=== PATIENT | female | born 1985 | race Caucasian/White ===

== ENCOUNTER 2016-08-02 14:48 | Emergency (ER) | payer MEDICAID ==
[2016-08-02 15:10] VITALS: BP 128/73; PULSE 71; RESP 18; TEMP 99.1; O2SAT 97
--- NOTE | 2016-08-02 15:27 | PD ---
HPI Chief Complaint: Dizziness Time Seen by Provider: 15:23 Travel History International Travel<30 days: No Contact w/Intl Traveler<30days: No Traveled to known affect area: No History of Present Illness HPI Patient is a 31-year-old female presenting to emergency Department with EMS for evaluation of dizziness. Patient states it started at 12:30 this afternoon when she was getting a facial done at school. She reports it feels as if the room is spinning it's worse with head movement. She reports the same thing happened 3 months ago. She denies any headache, shortness of breath, chest pain , nausea. Patient states that she did 2 lines of cocaine over the weekend and feels she could possibly be dehydrated. She denies any significant past medical history. [facility] Past Medical History Medical History: Denies Significant Hx ?: Unknown Past Surgical History Appendectomy: Yes Other Surgery: Yes (breast augmentation) Social History Alcohol Use: Yes Tobacco Use: Yes Substance Use: Yes (COCAINE) Allergies-Medications (Allergen,Severity, Reaction): Coded Allergies: No Known Allergies (Unverified , 08/02/16) Reported Meds & Prescriptions Reported Meds & Active Scripts Active Meclizine (Meclizine HCl) 25 Mg Tab 25 Mg PO TID PRN 10 Days Review of Systems Except as stated in HPI: all other systems reviewed are Neg Eyes: No: Blurred Vision HENT: Positive: Vertigo Neurologic: Positive: Dizziness Physical Exam Narrative GENERAL: Well developed, well-nourished, alert female. Resting comfortably in no acute distress. SKIN: Focused skin assessment warm/dry. HEAD: Atraumatic. Normocephalic. EYES: Pupils equal and round. No scleral icterus. No injection or drainage. ENT: No nasal bleeding or discharge. Mucous membranes pink and moist. NECK: Trachea midline. No JVD. CARDIOVASCULAR: Regular rate and rhythm. No murmur appreciated. RESPIRATORY: No accessory muscle use. Clear to auscultation. Breath sounds equal bilaterally. GASTROINTESTINAL: Abdomen soft, non-tender, nondistended. Hepatic and splenic margins not palpable. MUSCULOSKELETAL: No obvious deformities. No clubbing. No cyanosis. No edema. NEUROLOGICAL: Awake and alert. No obvious cranial nerve deficits. Motor grossly within normal limits. Normal speech. PSYCHIATRIC: Appropriate mood and affect; insight and judgment normal. Data Data Last Documented VS Vital Signs Date Time Temp Pulse Resp B/P Pulse Ox O2 Delivery O2 Flow Rate FiO2 08/02/16 15:10 99.1 71 18 128/73 97 Room Air Orders Electrocardiogram (08/02/16 15:05) Ecg Monitoring (08/02/16 15:05) Iv Access Insert/Monitor (08/02/16 15:05) Oximetry (08/02/16 15:05) Basic Metabolic Panel (Bmp) (08/02/16 15:22) Meclizine (Antivert) (08/02/16 15:30) Labs Laboratory Tests Test 08/02/16 15:30 Sodium Level 139 MEQ/L Potassium Level 3.6 MEQ/L Chloride Level 102 MEQ/L Carbon Dioxide Level 26.5 MEQ/L Anion Gap 11 MEQ/L Blood Urea Nitrogen 8 MG/DL Creatinine 0.84 MG/DL Estimat Glomerular Filtration 79 ML/MIN Rate Random Glucose 86 MG/DL Calcium Level 8.6 MG/DL MDM Medical Decision Making Medical Screen Exam Complete: Yes Emergency Medical Condition: Yes Interpretation(s) Laboratory Tests Test 08/02/16 15:30 Sodium Level 139 MEQ/L Potassium Level 3.6 MEQ/L Chloride Level 102 MEQ/L Carbon Dioxide Level 26.5 MEQ/L Anion Gap 11 MEQ/L Blood Urea Nitrogen 8 MG/DL Creatinine 0.84 MG/DL Estimat Glomerular Filtration 79 ML/MIN Rate Random Glucose 86 MG/DL Calcium Level 8.6 MG/DL Vital Signs Date Time Temp Pulse Resp B/P Pulse Ox O2 Delivery O2 Flow Rate FiO2 08/02/16 15:10 99.1 71 18 128/73 97 Room Air 08/02/16 15:10 71 18 97 Room Air 08/02/16 15:10 97 Room Air Differential Diagnosis Slight abnormality versus cardiac arrhythmia versus benign peripheral vertigo versus other Narrative Course Patient's a 31-year-old female presenting to emergency for evaluation of dizziness has ongoing for approximately 3 hours. Vital signs are stable, labs ordered and pending. EKG shows sinus rhythm with a rate of 63. We'll check metabolic panel, patient will be given dose of meclizine now. IV fluids started per EMS. BMP is unremarkable. Patient was also seen and evaluated by my attending physician. She was given a prescription for meclizine, she is encouraged follow -up with her primary doctor, she was given written information regarding the [facility]. Patient is to avoid use of illicit drugs. Patient is stable for discharge. Diagnosis Primary Impression: Vertigo Referrals: Primary Care Physician Patient Instructions: Benign Paroxysmal Positional Vertigo (ED), Dizziness (ED) , General Instructions Additional Instructions: Follow-up with her primary doctor Maintain adequate fluid intake Take medications as directed Return to emergency department for any new or worsening symptoms Med/Other Pt SpecificInfo: Prescription(s) given Scripts Meclizine 25 Mg Tab25 Mg PO TID PRN (VERTIGO) 10 Days Ref 0 Prov:Darby Uribe 08/02/16 Disposition: DISCHARGE HOME Condition: Stable Darby Uribe August 02, 2016 15:27
[2016-08-02] MEDS ORDERED: MECLIZINE HCL 25 MG TAB PO ONE (15:30)
[2016-08-02 16:05] LABS: BICARBONATE 26.5 MEQ/L (21.0-32.0); POTASSIUM 3.6 MEQ/L (3.5-5.1)
[2016-08-02] MEDS ORDERED: MECL-62 PO (16:11)
--- NOTE | 2016-08-02 16:15 | PD ---
Data Data Last Documented VS Vital Signs Date Time Temp Pulse Resp B/P Pulse Ox O2 Delivery O2 Flow Rate FiO2 08/02/16 15:10 99.1 71 18 128/73 97 Room Air Orders Electrocardiogram (08/02/16 15:05) Ecg Monitoring (08/02/16 15:05) Iv Access Insert/Monitor (08/02/16 15:05) Oximetry (08/02/16 15:05) Basic Metabolic Panel (Bmp) (08/02/16 15:22) Meclizine (Antivert) (08/02/16 15:30) Labs Laboratory Tests Test 08/02/16 15:30 Sodium Level 139 MEQ/L Potassium Level 3.6 MEQ/L Chloride Level 102 MEQ/L Carbon Dioxide Level 26.5 MEQ/L Anion Gap 11 MEQ/L Blood Urea Nitrogen 8 MG/DL Creatinine 0.84 MG/DL Estimat Glomerular Filtration 79 ML/MIN Rate Random Glucose 86 MG/DL Calcium Level 8.6 MG/DL MDM Supervised Visit with SHAINA: Yes Narrative Course I, Dr. Arreola, have reviewed the advance practice practioner's documentation and am in agreement, met with the patient face to face, made the diagnosis, and the medical decision making was done by me. *My assessment and Findings: 31-year-old female here with complaint of vertigo that started at approximately 12:30 PM while getting a facial, states it's worse with any head movement, notes a sensation of vertigo. Similar episode 3 months ago. She did snort 2 lines of cocaine over the weekend but otherwise has been asymptomatic. Neurologic examination is unremarkable, the patient is symptomatic with head movement primarily to the right. Symptoms are classic for BPPV, differential includes Mnire's, labyrinthitis with CATH LAB TECH lesion. Patient treated symptomatically we'll be discharged home. Diagnosis Primary Impression: Vertigo Referrals: Primary Care Physician Patient Instructions: General Instructions, Benign Paroxysmal Positional Vertigo (ED), Dizziness (ED) Departure Forms: Tests/Procedures Additional Instruction: Follow-up with her primary doctor or physical therapy if symptoms persist Maintain adequate fluid intake Take medications as directed Return to emergency department for any new or worsening symptoms Scripts Meclizine 25 Mg Tab25 Mg PO TID PRN (VERTIGO) 10 Days Ref 0 Prov:Darby Uribe 08/02/16 Disposition: 01 DISCHARGE HOME Condition: Stable Kathleen Arreola MD August 02, 2016 16:15
--- NOTE | 2016-08-03 08:53 | EKG ---
Date Performed: 08/02/2016 Time Performed: 15:24:47 PTAGE: 31 years EKG: Sinus rhythm WITH SHORT CT INTERVAL NONSPECIFIC ST ELEVATION BORDERLINE ECG INTERPRETATION BASED ON A DEFAULT AGE OF 40 YEARS NO PREVIOUS TRACING DOCTOR: William Peralta Interpretating Date/Time 08/03/2016 08:51:46
== END 2016-08-02 17:02 | disposition home or self-care (01) ==
LOC: NEPD 14:48
DX: R42 Dizziness and giddiness (principal); F14.90 Cocaine use, unspecified, uncomplicated; R94.31 Abnormal electrocardiogram [ECG] [EKG]; Z72.0 Tobacco use
CPT/HCPCS: 80048; 93005

== ENCOUNTER 2016-10-31 17:55 | Emergency (ER) | payer MEDICAID, OTHER ==
[~2016-10-31] VITALS: Ht 160 cm; Wt 50.0 kg
[~2016-10-31 17:55] MED LIST: MECL-62 PO
[2016-10-31 18:09] VITALS: BP 122/71; PULSE 73; RESP 15; TEMP 98.8; O2SAT 96
--- NOTE | 2016-10-31 18:36 | PD ---
HPI Chief Complaint: Alcohol/Drug Intoxication Time Seen by Provider: 18:32 Travel History International Travel<30 days: No Contact w/Intl Traveler<30days: No Traveled to known affect area: No History of Present Illness HPI 31-year-old female presents to the emergency Department under Kelly's act by local police. The patient states she has been drinking alcohol all day today. She also states that she smoked crack. The patient states she wants inpatient detox. She denies any thoughts of hurting herself or anybody else. The patient is alert and answers all questions appropriately. She is walking around the room without difficulty. She denies any complaints to me. No headache. No chest pressures breath. No abdominal pain. Nausea, vomiting, diarrhea. PFSH Past Medical History ?: Not Past Surgical History Appendectomy: Yes Other Surgery: Yes (breast augmentation) Social History Alcohol Use: Yes Tobacco Use: Yes Substance Use: Yes (COCAINE, HEROIN) Allergies-Medications (Allergen,Severity, Reaction): Coded Allergies: No Known Allergies (Unverified , 10/31/16) Reported Meds & Prescriptions Reported Meds & Active Scripts Active Meclizine (Meclizine HCl) 25 Mg Tab 25 Mg PO TID PRN 10 Days Review of Systems Except as stated in HPI: all other systems reviewed are Neg Physical Exam Narrative GENERAL: Well-nourished, well-developed female patient, ambulatory with a steady gait. Afebrile. Patient is alert and oriented to person, place, time. SKIN: Focused skin assessment warm/dry. HEAD: Normocephalic. Atraumatic. EYES: No scleral icterus. No injection or drainage. NECK: Supple, trachea midline. No JVD or lymphadenopathy. CARDIOVASCULAR: Regular rate and rhythm without murmurs, gallops, or rubs. RESPIRATORY: Breath sounds equal bilaterally. No accessory muscle use. Lungs sounds are clear to auscultation. GASTROINTESTINAL: Abdomen soft, non-tender, nondistended. MUSCULOSKELETAL: No cyanosis, or edema. BACK: Nontender without obvious deformity. No CVA tenderness. PSYCHIATRIC: No delusional thought processes. No hallucinations. Data Data Last Documented VS Vital Signs Date Time Temp Pulse Resp B/P Pulse Ox O2 Delivery O2 Flow Rate FiO2 10/31/16 18:09 98.8 73 15 122/71 96 MDM Medical Decision Making Medical Screen Exam Complete: Yes Emergency Medical Condition: Yes Medical Record Reviewed: Yes Differential Diagnosis Alcohol intoxication versus substance abuse versus medical clearance Narrative Course 31-year-old female presents to the emergency department under Mina act by local police for alcohol intoxication, drug use. The patient has no complaints and would like to leave. She is ambulatory with a steady gait. She is alert and answers all questions appropriately. The patient does not need Brock act criteria. I do not feel I can keep this patient against her will. The patient agrees to get a cab and will allow us to watch her gait in the. She states she does not have a ride home at this time. The patient was discharged in stable condition with instructions, including return instructions and follow up instructions. Diagnosis Primary Impression: Alcohol intoxication Qualified Code: F10.920 - Alcohol intoxication, uncomplicated Referrals: Primary Care Physician call for appointment [facility] Patient Instructions: Alcohol Intoxication (ED), General Instructions Additional Instructions: Follow-up [facility] for detox. Follow-up with your primary care physician. Return to the emergency department for any acute worsening of symptoms. Med/Other Pt SpecificInfo: No Change to Meds Disposition: 01 DISCHARGE HOME Condition: Stable Tiki Rios Oct 31, 2016 18:36
--- NOTE | 2016-10-31 19:01 | PD ---
Data Data Last Documented VS Vital Signs Date Time Temp Pulse Resp B/P Pulse Ox O2 Delivery O2 Flow Rate FiO2 10/31/16 18:09 98.8 73 15 122/71 96 MDM Supervised Visit with SHAINA: Yes Narrative Course The history, exam, and medical decision-making in the associated midlevel provider note were completed with my assistance. I reviewed and agree with the findings presented. I attest that I had a [id number] encounter with the patient on the same day, and personally performed and documented my assessment and findings in the medical record. *My assessment and Findings: This is a 31-year-old female who presents to the emergency department brought in under Kelly's act for alcohol and cocaine abuse. She is able to walk, speak articulately and wants to leave. She plans to take a taxi home. She has no active medical complaints. She can understand questioning and articulate her reasoning. I don't think we can hold her against her will as she has decision-making capacity on my assessment. Patient will be released and discharged. Diagnosis Primary Impression: Alcohol intoxication Qualified Code: F10.920 - Alcohol intoxication, uncomplicated Referrals: [facility] Patient Instructions: General Instructions, Alcohol Intoxication (ED) Additional Instruction: Follow-up [facility] for detox. Follow-up with your primary care physician. Return to the emergency department for any acute worsening of symptoms. Disposition: 01 DISCHARGE HOME Condition: Stable Rebeca Dinero MD Oct 31, 2016 19:01
== END 2016-10-31 18:47 | disposition home or self-care (01) ==
LOC: NEPE 17:55
DX: F10.120 Alcohol abuse with intoxication, uncomplicated (principal); F14.10 Cocaine abuse, uncomplicated
CPT/HCPCS: 99283